=== PATIENT | male | born 1990 | race American Indian/Alaskan Native ===

== ENCOUNTER 2019-06-22 11:22 | Emergency (ER) | payer SELFPAY ==
[2019-06-22] MEDS ORDERED: IBUPROFEN PO ONE (12:25)
[2019-06-22] MEDS ORDERED: NORCO 5/325 PO ONE (12:25)
--- NOTE | 2019-06-22 12:30 | Emergency Department Report ---
HPI - General Chief Complaint: Rectal Pain Time Seen by Provider: 06/22/19 12:07 - HPI HPI: Room 37 The patient is a 21-year-old male presenting with a chief complaint of rectal pain. The patient states she has a history of hemorrhoids and over the past 2 days he's had a flareup. She complains of rectal pain that increases her in bowel movements. Patient denies rectal bleeding. Location: [See above] Duration: [See above] Quality: [See above] Severity: [See above] Timing: [See above] Context: [See above] Modifying factors: [See above] Associated signs and symptoms: [see above] ED Past Medical Hx - Past Medical History Previous Medical History?: Yes Hx Asthma: Yes Additional medical history: Hemorrhoids - Surgical History Past Surgical History?: No - Family History Family history: no significant - Social History Smoking Status: Current Every Day Smoker (1/10 pack per day) Substance Use Type: Marijuana - Medications Home Medications: Home Medications Medication Instructions Recorded Confirmed Last Taken Type HYDROcodone/APAP 5-325 [[place] 1 each PO Q6HR PRN #14 tablet 01/30/14 Unknown Rx 5/325 mg] Ibuprofen [Motrin 800 MG tab] 800 mg PO Q8H #30 tablet 01/30/14 Unknown Rx Docusate Sodium [Colace] 100 mg PO BID #60 capsule 06/22/19 Unknown Rx HYDROcodone/APAP 5-325 [[place] 1 - 2 each PO Q6HR PRN #14 tablet 06/22/19 Unknown Rx 5/325] Hydrocortisone [Anucort-HC SUPPOS] 25 mg RC BID #10 supp.rect 06/22/19 Unknown Rx Ibuprofen [Motrin 800 MG tab] 800 mg PO Q8HR PRN #20 tablet 06/22/19 Unknown Rx ED Review of Systems ROS: Stated complaint: INTERNAL HEMORRHAGE Other details as noted in HPI Constitutional: no symptoms reported Eyes: denies: eye pain ENT: denies: throat pain Respiratory: no symptoms reported Cardiovascular: denies: chest pain Endocrine: no symptoms reported Gastrointestinal: other (rectal pain). denies: abdominal pain, hematochezia Genitourinary: denies: dysuria Musculoskeletal: denies: back pain Neurological: denies: headache Physical Exam - Physical Exam Vital Signs: Vital Signs 06/22/19 11:26 Temperature 98.0 F Pulse Rate 83 Respiratory 16 Rate Blood Pressure 120/66 O2 Sat by Pulse 100 Oximetry Physical Exam: GENERAL: The patient is well-developed well-nourished male lying on stretcher not appearing to be in acute distress. [] HEENT: Normocephalic. Atraumatic. Extraocular motions are intact. Patient has moist mucous membranes. NECK: Supple. Trachea midline CHEST/LUNGS: Clear to auscultation. There is no respiratory distress noted. HEART/CARDIOVASCULAR: Regular. There is no tachycardia. There is no gallop rub or murmur. ABDOMEN: Abdomen is soft, nontender. Patient has normal bowel sounds. There is no abdominal distention. SKIN: There is no rash. There is no edema. There is no diaphoresis. NEURO: The patient is awake, alert, and oriented. The patient is cooperative. The patient has no focal neurologic deficits. The patient has normal speech MUSCULOSKELETAL: There is no evidence of acute injury. ED Course Vital Signs 06/22/19 11:26 Temperature 98.0 F Pulse Rate 83 Respiratory 16 Rate Blood Pressure 120/66 O2 Sat by Pulse 100 Oximetry ED Medical Decision Making - Differential Diagnosis internal hemorrhoid Critical care attestation.: If time is entered above; I have spent that time in minutes in the direct care of this critically ill patient, excluding procedure time. ED Disposition Clinical Impression: Hemorrhoid, Rectal pain Disposition: DC-01 TO HOME OR SELFCARE Is pt being admited?: No Does the pt Need Aspirin: No Condition: Stable Instructions: Hemorrhoids (ED) Additional Instructions: Return to the emergency department should you develop worsening symptoms, inability to tolerate food or liquids, high fever or any other concerns Prescriptions: Hydrocortisone [Anucort-HC SUPPOS] 25 mg RC BID #10 supp.rect Docusate Sodium [Colace] 100 mg PO BID #60 capsule Ibuprofen [Motrin 800 MG tab] 800 mg PO Q8HR PRN #20 tablet PRN Reason: Pain, Moderate (4-6) HYDROcodone/APAP 5-325 [[place] 5/325] 1 - 2 each PO Q6HR PRN #14 tablet PRN Reason: Pain [facility]Primary Care Provider[facility] - 3-5 Days ALECIA CEBALLOS DO [Staff Physician] - 3-5 Days (Dr Ceballos is a general surgeon. Please follow with her for further evaluation of your hemorrhoid) KYLE STOUT MD [Staff Physician] - 3-5 Days (Dr. Stout is a director data. Please follow up with him for further evaluation of your hemorrhoid) Time of Disposition: 12:35
[2019-06-22 12:57] VITALS: BP 139/75
== END 2019-06-22 13:07 | disposition home or self-care (01) ==
LOC: ED 11:22
DX: K64.9 Unspecified hemorrhoids (principal); J45.909 Unspecified asthma, uncomplicated; F17.200 Nicotine dependence, unspecified, uncomplicated; F12.10 Cannabis abuse, uncomplicated
CPT/HCPCS: 99282